=== PATIENT | female | born 1955 | race Caucasian/White ===

== ENCOUNTER → 2023-09-08 08:34 | Outpatient (REF) | payer BC, MEDICARE, SELFPAY | LOC: WDC 08:34 | PROVIDERS: ATTENDING PHYSICIAN Physician Assistant Medical | DX: Z12.31 Encounter for screening mammogram for malignant neoplasm of breast (principal) | CPT/HCPCS: 77063; 77067 ==

== ENCOUNTER → 2023-11-12 14:14 | Outpatient (REF) | payer BC, MEDICARE, SELFPAY | LOC: RAD 14:14 | PROVIDERS: ATTENDING PHYSICIAN Physician Assistant Medical | DX: I10 Essential (primary) hypertension (principal); Z78.0 Asymptomatic menopausal state; Z82.49 Family history of ischemic heart disease and other diseases of the circulatory system | CPT/HCPCS: 77080 ==

== ENCOUNTER 2023-11-16 13:28 | Outpatient (RCR) | payer BC, MEDICARE, SELFPAY ==
[2023-11-16] MEDS: NSS 500 IV (14:24)
[2023-11-16 14:28] VITALS: BP 122/70
[2023-11-16 15:13] VITALS: BP 99/55
[2023-11-16 15:39] VITALS: BP 95/56
[2023-11-16 15:42] VITALS: BP 98/59
== END 2023-11-16 23:59 | disposition home or self-care (01) ==
LOC: OID 13:28
PROVIDERS: ATTENDING PHYSICIAN Internal Medicine Hematology & Oncology
DX: D45 Polycythemia vera (principal)
CPT/HCPCS: 36415; 96360; 99195

== ENCOUNTER → 2023-12-17 07:17 | Outpatient (REF) | payer BC, MEDICARE, SELFPAY | LOC: RAD 07:17 | PROVIDERS: ATTENDING PHYSICIAN Physician Assistant Medical; FAMILY PHYSICIAN Internal Medicine Hematology & Oncology | DX: I10 Essential (primary) hypertension (principal) | CPT/HCPCS: 76770 ==

== ENCOUNTER 2024-03-30 10:38 | Outpatient (RCR) | payer BC, SELFPAY ==
[2024-03-30 10:45] VITALS: BP 140/69
[2024-03-30] MEDS: NSS 500 IV (11:06)
[2024-03-30 11:50] VITALS: BP 134/68
[2024-03-30 11:57] VITALS: BP 134/68
== END 2024-03-31 09:07 | disposition home or self-care (01) ==
LOC: OID 10:38
PROVIDERS: ATTENDING PHYSICIAN Internal Medicine Hematology & Oncology; FAMILY PHYSICIAN Physician Assistant Medical
DX: D45 Polycythemia vera (principal)
CPT/HCPCS: 96360; 99195

== ENCOUNTER 2024-05-23 13:25 | Outpatient (RCR) | payer BC, SELFPAY ==
[2024-05-23 13:48] VITALS: BP 112/60
[2024-05-23] MEDS: NSS 500 IV (14:12)
[2024-05-23 15:06] VITALS: BP 114/63
[2024-05-23 15:15] VITALS: BP 121/80
== END 2024-05-24 09:54 | disposition home or self-care (01) ==
LOC: OID 13:25
PROVIDERS: ATTENDING PHYSICIAN Internal Medicine Hematology & Oncology; FAMILY PHYSICIAN Physician Assistant Medical
DX: D45 Polycythemia vera (principal); Z72.0 Tobacco use
CPT/HCPCS: 96360

== ENCOUNTER 2024-09-05 13:41 | Outpatient (RCR) | payer BC, MEDICARE, SELFPAY ==
[2024-09-05] MEDS: NSS 500 IV (14:07)
[2024-09-05 14:14] VITALS: BP 125/77
[2024-09-05 15:15] VITALS: BP 117/65
[2024-09-05 15:20] VITALS: BP 116/68
== END 2024-09-15 23:59 | disposition home or self-care (01) ==
LOC: OID 13:41
PROVIDERS: ATTENDING PHYSICIAN Internal Medicine Hematology & Oncology; FAMILY PHYSICIAN Physician Assistant Medical
DX: D45 Polycythemia vera (principal)
CPT/HCPCS: 96360; 99195

== ENCOUNTER → 2025-01-10 07:24 | Outpatient (REF) | payer BC, MEDICARE, SELFPAY | LOC: WDC 07:24 | PROVIDERS: ATTENDING PHYSICIAN Physician Assistant Medical | DX: Z12.31 Encounter for screening mammogram for malignant neoplasm of breast (principal) | CPT/HCPCS: 77063; 77067 ==

== ENCOUNTER 2025-02-02 13:35 | Outpatient (RCR) | payer BC, MEDICARE, SELFPAY ==
[2025-02-02] MEDS: NSS 500 IV (14:26)
[2025-02-02 14:28] VITALS: BP 138/72
[2025-02-02 15:20] VITALS: BP 106/68
[2025-02-02 15:50] VITALS: BP 107/68
== END 2025-02-15 23:59 | disposition home or self-care (01) ==
LOC: OID 13:35
PROVIDERS: ATTENDING PHYSICIAN Internal Medicine Hematology & Oncology; FAMILY PHYSICIAN Physician Assistant Medical
DX: D45 Polycythemia vera (principal)
CPT/HCPCS: 96360; 99195

== ENCOUNTER 2025-06-11 10:24 | Outpatient (RCR) | payer BC, MEDICARE, SELFPAY ==
[2025-06-11 10:50] VITALS: BP 136/69
[2025-06-11] MEDS: NSS 500 IV (11:08)
[2025-06-11 11:50] VITALS: BP 113/57
[2025-06-11 11:55] VITALS: BP 103/71
== END 2025-06-17 23:59 | disposition home or self-care (01) ==
LOC: OID 10:24
PROVIDERS: ATTENDING PHYSICIAN Internal Medicine Hematology & Oncology; FAMILY PHYSICIAN Physician Assistant Medical
DX: D45 Polycythemia vera (principal); Z72.0 Tobacco use
CPT/HCPCS: 96360; 99195

== ENCOUNTER → 2025-06-21 12:56 | Outpatient (REF) | payer BC, MEDICARE, SELFPAY | LOC: RAD 12:56 | PROVIDERS: ATTENDING PHYSICIAN Internal Medicine Hematology & Oncology; FAMILY PHYSICIAN Physician Assistant Medical | DX: D45 Polycythemia vera (principal); Z72.0 Tobacco use | CPT/HCPCS: 71271 ==

== ENCOUNTER → 2025-07-04 08:36 | Outpatient (REF) | payer BC, MEDICARE, SELFPAY | LOC: WDC 08:36 | PROVIDERS: ATTENDING PHYSICIAN Physician Assistant Medical | DX: N64.4 Mastodynia (principal); E83.52 Hypercalcemia | CPT/HCPCS: 76642 ==